=== PATIENT | female | born 1955 | race Caucasian/White ===

== ENCOUNTER 2016-10-24 17:03 | Emergency (ER) | payer OTHER ==
[2016-10-24 18:32] LABS: BASOPHIL 0.3 % (0-2); EOSINOPHIL 0.4 % (0-5); HCT 41.2 % (37.0-47.0); LYMPHOCYTE 12.7 % (15-48); MCH 29.9 pg (25.0-31.0); MONOCYTE 7.5 % (0-12); MPV 9.2 fL (6.0-9.5); NEUTROPHIL 79.1 % (41-80); PLT 265 K/uL (150-400); RBC 4.68 M/uL (4.20-5.40); RDW 13.4 % (11.5-14.0); WBC 7.3 K/uL (4.0-10.5)
[2016-10-24 18:50] LABS: ALBUMIN 5.1 g/dL (3.4-4.8); BILIRUBIN - TOTAL 0.2 mg/dL (0.1-1.0); CREATININE 0.4 mg/dL (0.5-1.0); GLOBULIN (CALCULATION) 2.7 g/dL (2.2-4.2); POTASSIUM 3.9 mmol/L (3.5-5.1); TOTAL PROTEIN 7.8 g/dL (6.4-8.3)
== END 2016-10-24 20:51 | disposition home or self-care (01) ==
LOC: FER 17:03
PROVIDERS: Internal Medicine
DX: I10 Essential (primary) hypertension (principal); Z79.899 Other long term (current) drug therapy
CPT/HCPCS: 36415; 71020; 80053; 84484; 85025; 85379; 93005